=== PATIENT | female | born 1980 | race Caucasian/White ===

== ENCOUNTER 2021-03-28 17:58 | Emergency (ER) | payer MEDICAID, OTHER ==
[2021-03-28] MEDS ORDERED: predniSONE 10 MG Tab PO ONE (17:59)
--- NOTE | 2021-03-28 18:33 | EDM.PDOC ---
ED HPI GENERAL MEDICAL PROBLEM - General Chief Complaint: Allergic Reaction Stated Complaint: POISON MALDONADO/OAKS ON GENITALS Time Seen by Provider: 03/28/21 18:28 Source of Information: Reports: Patient History Limitations: Reports: No Limitations - History of Present Illness INITIAL COMMENTS - FREE TEXT/NARRATIVE: Patient was hiking 2 days ago an used leaves to wipe after urinating. Yesterday she developed a pruritic rash to right upper arm and inner thighs. She thinks the leaves may have been poison oak or maldonado. The rash is worsening and hydrocortisone cream, benadryl lotion, tea tree oil, and oatmeal bath have not helped. Patient requests steroids as they have helped with prior occurrences. Denies throat swelling or SOB. Onset Date: 03/27/21 Duration: Getting Worse Location: Reports: Upper Extremity, Right, Lower Extremity, Left, Lower Extremity, Right Quality: Reports: Other (pruritis) Improves with: Reports: None - Related Data Allergies Allergy/AdvReac Type Severity Reaction Status Date / Time No Known Allergies Allergy Verified 03/28/21 18:21 Home Meds: Home Meds predniSONE 40 mg PO DAILY 3 Days #12 tab 03/28/21 [Rx] Past Medical History - Past Health History Medical/Surgical History: Denies Medical/Surgical History ED ROS ALLERGIC REACTION - Review of Systems Review Of Systems: Comprehensive ROS is negative, except as noted in HPI. ED EXAM GENERAL NO PERIP PULSE - Physical Exam Exam: See Below Exam Limited By: No Limitations General Appearance: Alert, WD/WN, No Apparent Distress Throat/Mouth: Normal Inspection, Normal Voice, No Airway Compromise Head: Atraumatic, Normocephalic Neck: Full Range of Motion Respiratory/Chest: No Respiratory Distress, Lungs Clear, Normal Breath Sounds Cardiovascular: Regular Rate, Rhythm, No Murmur Extremities: Normal Range of Motion Neurological: Alert, Normal Cognition Psychiatric: Normal Affect, Normal Mood Skin Exam: Warm, Dry, Other (raised confluent areas of erythema to right upper arm and bilateral inner thighs) Course - Vital Signs Last Recorded V/S: Last Vital Signs Temp 36.9 C 03/28/21 18:00 Pulse 99 03/28/21 18:00 Resp 16 03/28/21 18:00 BP 132/76 03/28/21 18:00 Pulse Ox 100 03/28/21 18:00 - Re-Assessments/Exams Free Text/Narrative Re-Assessment/Exam: 03/28/21 18:34 Sent home with Prednisone 40mg daily x 2 doses. Will prescribe 3 more days. Departure - Departure Time of Disposition: 18:43 Disposition: Home, Self-Care 01 Condition: Good Clinical Impression: Contact dermatitis Qualifiers: Contact dermatitis type: allergic Contact dermatitis trigger: non-food plants Qualified Code(s): L23.7 - Allergic contact dermatitis due to plants, except food - Discharge Information *PRESCRIPTION DRUG MONITORING PROGRAM REVIEWED*: No *COPY OF PRESCRIPTION DRUG MONITORING REPORT IN PATIENT CARLEEN: Not Applicable Prescriptions: predniSONE 40 mg PO DAILY 3 Days #12 tab Instructions: Poison Maldonado Dermatitis, [id number] Forms: ED Department Discharge Additional Instructions: Fill the prescription for Prednisone at [facility] and take as directed. Follow up in 2 days if symptoms don't improve. Return to the ER if symptoms worsen. Sepsis Event Note (ED) - Focused Exam Vital Signs: Vital Signs Temp Pulse Resp BP Pulse Ox 03/28/21 18:00 36.9 C 99 16 132/76 100
[2021-03-28 18:40] VITALS: BP 132/76; PULSE 99
== END 2021-03-28 19:00 | disposition home or self-care (01) ==
LOC: FB.ED 17:58
DX: L23.7 Allergic contact dermatitis due to plants, except food (principal)
CPT/HCPCS: 99283; J7512

== ENCOUNTER 2025-03-29 20:35 | Emergency (ER) | payer BC, MEDICAID ==
[2025-03-29] MEDS: Sodium Chloride 0.9% 10 ML Syringe FLUSH PRN (21:00)
[2025-03-29] MEDS: Ondansetron 4 MG/2 ML SDV IVPUSH ONE (21:02)
[2025-03-29] MEDS: Lactated Ringers 1,000 ML IV SCH (21:05)
[2025-03-29] MEDS: HYDROmorphone 2 MG/ML SDV IVPUSH ONE (21:05)
[2025-03-29 21:09] LABS: BASOPHILS ABSOLUTE AUTO 0.1 x10-3/uL (0.0-0.1); BASOPHILS PERCENT AUTO 0.6 % (0.2-1.5); EOSINOPHILS ABSOLUTE AUTO 0.1 x10-3/uL (0.0-0.8); EOSINOPHILS PERCENT AUTO 0.9 % (0.6-8.1); HEMATOCRIT 40.4 % (34.2-48.2); LYMPHOCYTES ABSOLUTE AUTO 3.9 x10-3/uL (1.0-4.4); LYMPHOCYTES PERCENT AUTO 37.2 % (18.4-52.1); MEAN CORPUSCULAR HEMOGLOBIN 30.7 pg (23.9-33.9); MEAN CORPUSCULAR HGB CONC 34.8 g/dL (31.9-34.8); MEAN CORPUSCULAR VOLUME 88.3 fL (76.7-100.5); MEAN PLATELET VOLUME 10.1 fL (7.1-12.4); MONOCYTES ABSOLUTE AUTO 0.5 x10-3/uL (0.3-1.0); MONOCYTES PERCENT AUTO 4.7 % (4.4-15.7); NEUTROPHILS ABSOLUTE AUTO 5.9 x10-3/uL (1.5-6.3); NEUTROPHILS PERCENT AUTO 56.6 % (30.8-76.2); PLATELET COUNT,PLT 189 x10(3)uL (151-488); RED BLOOD CELL COUNT 4.57 x10(6)uL (3.60-5.20); WHITE BLOOD CELL COUNT,WBC 10.5 x10-3/uL (3.0-10.3)
[2025-03-29 21:14] LABS: BLOOD UREA NITROGEN,BUN 13 mg/dL (7-18); BUN/CREATININE RATIO 14.4 (9-20); CALCIUM 8.9 mg/dL (8.6-10.2); CARBON DIOXIDE,CO2 25 mmol/L (21-32); CHLORIDE,CL 107 mmol/L (100-110); CREATININE 0.9 mg/dL (0.55-1.02); ESTIMATED GFR 81 mL/min (>60); GLUCOSE RANDOM 101 mg/dL (80-116); POTASSIUM,K 3.7 mmol/L (3.5-5.3); SODIUM,NA 142 mmol/L (135-145)
[2025-03-29] MEDS: Iopamidol 755 Mg/ML 100 ML Bottle IV SCH (21:16)
[2025-03-29 21:25] LABS: A/G RATIO 1.1; ALANINE AMINOTRANSFERASE,ALT 88 U/L (12-36); ALBUMIN 4.1 g/dL (3.5-5.2); ALKALINE PHOSPHATASE 78 IU/L (56-112); AMYLASE 67 U/L (25-115); BILIRUBIN TOTAL 0.3 mg/dL (0.1-1.3); PROTEIN TOTAL,TP 7.7 g/dL (6.0-8.0)
[2025-03-29 21:27] LABS: ASPARTATE AMNIOTRANSFERASE,AST 177 IU/L (5-25)
[2025-03-29] MEDS: Pantoprazole 40 MG Vial IVPUSH ONE (21:39)
[2025-03-29] MEDS: Ketorolac 30 MG/ML SDV IVPUSH ONE (23:25)
[2025-03-29 23:41] VITALS: BP 120/75; PULSE 74
== END 2025-03-29 23:30 | disposition home or self-care (01) ==
LOC: FB.ED 20:35
DX: R11.2 Nausea with vomiting, unspecified (principal); Z79.899 Other long term (current) drug therapy
CPT/HCPCS: 74177; 80053; 80307; 82150; 83690; 85025; 86140; 96361; 96374; 96375; 96376; 99284; J1171; J1885; J2405; J2470; J7120; Q9967